=== PATIENT | male | born 1975 | race Caucasian/White ===

== ENCOUNTER 2018-12-31 13:31 | Emergency (ER) | payer SELFPAY ==
[~2018-12-31] VITALS: Ht 172.7 cm; Wt 80.0 kg
[2018-12-31 16:07] VITALS: BP 125/71
== END 2018-12-31 16:11 | disposition home or self-care (01) ==
LOC: ER 14:06
DX: S93.402A Sprain of unspecified ligament of left ankle, initial encounter (principal); M54.5 Low back pain; V29.88XA Motorcycle rider (driver) (passenger) injured in other specified transport accidents, initial encounter; Y93.89 Activity, other specified; Y92.89 Other specified places as the place of occurrence of the external cause; Y99.8 Other external cause status
CPT/HCPCS: 72100; 73590; 73600; 99283